=== PATIENT | female | born 1960 | race Hispanic/Latino ===

== ENCOUNTER 2018-05-02 20:54 | Emergency (ER) | payer BC ==
[~2018-05-02] VITALS: Ht 162.6 cm; Wt 78.0 kg
[~2018-05-02 20:54] MED LIST: MELOXICAM7.5 MG PO
--- OUTSIDE RECORDS SUMMARY | 2018-05-02 20:56 | XMS REPORT | Continuity of Care Document ---
Author Author [facility] Interface Address Unknown Phone Unavailable Problems Problem Status Onset Date Classification Date Reported Comments Source Z87.440 Active 08/12/2016 [facility] Medications Medication Details Route Status Patient Instructions Ordering Provider Order Date Source Allergies, Adverse Reactions, Alerts Substance Category Reaction Severity Reaction type Status Date Reported Comments Source Immunizations Immunization Date Given Site Status Last Updated Comments Source Results Order Name Results Value Reference Range Date Interpretation Comments Source CHEM PANEL eGFR 96 mL/min/1.73m2 08/16/2016 Result Comment: The eGFR is calculated using the CKD-EPI formula. In most young, healthy individuals the eGFR will be >90 mL/min/1.73m2. The eGFR declines with age. An eGFR of 60-89 may be normal in some populations, particularly the elderly, for whom the CKD-EPI formula has not been extensively validated. Use of the eGFR is not recommended in the following populations: Individuals with unstable creatinine concentrations, including patients and those with serious co-morbid conditions. Patients with extremes in muscle mass or diet. The data above are obtained from the National Kidney Disease Education Program (NKDEP) which additionally recommends that when the eGFR is used in patients with extremes of body mass index for purposes of drug dosing, the eGFR should be multiplied by the estimated BMI. [facility] CHEM PANEL POC Creatinine 0.7 mg/dL 0.5 - 1.4 08/16/2016 [facility] Intravenous Pyelogram DX Intravenous Pyelogram DX INTRAVENOUS PYELOGRAM WITH TOMOGRAMS: HISTORY: Stress incontinence. FINDINGS: The preliminary radiographs show no evidence of opaque urinary tract calculus. Mild degenerative changes in the lumbar spine are noted. Following intravenous injection of contrast, there is prompt and symmetric opacification into the kidneys which are normal in size position and contour. There is prompt visualization of the pelvocalyceal systems and ureters without filling defect, obstruction or mass displacement. The ureters show normal course and caliber without obstruction. The bladder is unremarkable with mild to moderate post void residual. IMPRESSION: Negative intravenous pyelogram. SHAMAR [id number] 08/16/2016 - - Read by: Rafael Browne MD Dictated Date/time: 08/16/16 13:37 Electronically Signed by: Rafael Browne MD 08/16/16 13:41 FINAL REPORT [facility] Retroperitoneal Complete US Retroperitoneal Complete US BILATERAL RENAL ULTRASOUND: HISTORY: Urinary tract infection. FINDINGS: The right kidney is 11.0 cm in length and 4.6 x 4.4 cm in transverse dimension. The left kidney is 12.2 cm in length and 4.7 x 3.8 cm in transverse dimension. There is normal thickness and echogenicity of the renal parenchyma. There is no evidence of cyst, mass, hydronephrosis, or calculi. Satisfactory qualitative color-flow is demonstrated bilaterally. There is moderate volume urine in the bladder without other significant abnormalities. Bilateral ureteral jets are demonstrated. IMPRESSION: No significant ultrasound abnormalities of the kidneys. [id number] 08/16/2016 - - Read by: Rafael Browne MD Dictated Date/time: 08/16/16 10:19 Electronically Signed by: Rafael Browne MD 08/16/16 10:20 FINAL REPORT [facility] Vital Signs Vital Sign Value Date Comments Source Encounters Location Location Details Encounter Type Encounter Number Reason For Visit Attending Provider ADM Date DC Date Status Source [facility] Outpatient [id number] Shashi Manzano 08/16/2016 08/17/2016 EVON Gil Procedures Procedure Code Date Perfomer Comments Source
--- OUTSIDE RECORDS SUMMARY | 2018-05-02 20:57 | XMS REPORT | Summary of Care ---
Author Author [facility] Organization [facility] Address Unknown Phone Unavailable Encounter ROMAIN Galindo(LILIANA) [id number] Date(s): 08/16/16 - 08/16/16 [facility] [address] [place] [address]- Discharge Disposition: Home or Self Care Attending Physician: Shashi Manzano MD Referring Physician: Shashi Manzano MD Vital Signs No data available for this section Problem List No data available for this section Allergies, Adverse Reactions, Alerts Substance Reaction Severity Status NKDA Active Medications No data available for this section Results CHEM PANEL Most recent to 1 oldest [Reference Range]: eGFR 96 mL/min/1.73m2 1 *NA* (08/16/16 10:08 AM) POC Creatinine 0.7 mg/dL [0.5-1.4 mg/dL] (08/16/16 10:08 AM) 1Result Comment: The eGFR is calculated using the [...] from the National Kidney Disease Education Program ( NKDEP) which additionally recommends that when the eGFR is used in patients with extremes of body mass index for purposes of drug dosing, the eGFR should be mul tiplied by the estimated BMI. Immunizations No data available for this section Procedures No data available for this section Social History No data available for this section Assessment and Plan No data available for this section
--- NOTE | 2018-05-02 22:07 | Diagnostic Imaging Report ---
EXAMINATION: Head CT without contrast. HISTORY:Headache. COMPARISON:None. TECHNIQUE: Multidetector axial images were obtained from the foramen magnum to the vertex without contrast. The images were reconstructed using brain and bone algorithms. Thin section brain images were reformatted into coronal and sagittal planes. Dose modulation, iterative reconstruction, and/or weight based adjustment of the mA/kV was utilized to reduce the radiation dose to as low as reasonably achievable. Intravenous contrast: None IMAGE QUALITY: Acceptable. FINDINGS: Skull/scalp: No lytic or blastic. lesions. No surgical changes. Parenchyma: No abnormal density. No acute hemorrhage, mass or acute major vascular territorial infarct. Arteries: No density suggestive of thrombosis. Mild atherosclerotic calcification in bilateral carotid siphon and V4 segment of the vertebral arteries. Dural sinuses: No abnormal density suggestive of thrombosis. Ventricles: No hydrocephalus or displacement. Extra-axial spaces: No abnormal density. Brain volume: Mild generalized cerebral volume loss. Craniocervical junction: No mass, Chiari malformation, or basilar invagination. Sella: No mass. Paranasal/mastoid sinuses: Imaged portions unremarkable. IMPRESSION: No acute intracranial abnormality. Mild generalized cerebral volume loss. Signed by: Dr. Aviva Jaramillo M.D. on 05/02/2018 10:03 PM
[2018-05-02] MEDS ORDERED: KETOROLAC TROMETHAMINE 30 MG/ML VIAL IM STA (22:12)
[2018-05-02 22:40] VITALS: BP 152/88
== END 2018-05-02 22:50 | disposition home or self-care (01) ==
LOC: FSED 20:54
DX: G44.219 Episodic tension-type headache, not intractable (principal)
CPT/HCPCS: 70450; 99283

== ENCOUNTER 2022-09-22 14:26 | Outpatient (RCR) | payer BC | END 2022-09-26 | LOC: PT 14:26 | PROVIDERS: ATTEND Specialist | DX: M75.101 Unspecified rotator cuff tear or rupture of right shoulder, not specified as traumatic (principal) ==

== ENCOUNTER 2022-09-27 07:04 | Outpatient (RCR) | payer BC | END 2022-10-27 | LOC: PT 07:04 | PROVIDERS: ATTEND Specialist | DX: M75.101 Unspecified rotator cuff tear or rupture of right shoulder, not specified as traumatic (principal) ==

== ENCOUNTER 2025-01-24 15:00 | Outpatient (RCR) | payer MEDICARE | END 2025-01-27 | LOC: PT 15:00 | PROVIDERS: ATTEND Orthopaedic Surgery | DX: M25.561 Pain in right knee (principal); S82.091A Other fracture of right patella, initial encounter for closed fracture ==

== ENCOUNTER 2025-01-27 07:38 | Emergency (ER) | payer MEDICARE ==
[~2025-01-27] VITALS: Ht 170.2 cm; Wt 71.2 kg
[2025-01-27 07:38] VITALS: PULSE 94; RESP 18; TEMP 99.4
[2025-01-27 08:28] LABS: STREPTOCOCCUS GRP A ANTIGEN NEGATIVE (NEGATIVE)
[2025-01-27 08:39] LABS: CORONAVIRUS COVID-19 AG POSITIVE (NEGATIVE)
[2025-01-27] MEDS: KETOROLAC TROMETHAMINE 30 MG/ML VIAL IM STA (08:40)
[2025-01-27 09:48] VITALS: BP 110/70; PULSE 88; RESP 18; O2SAT 99
== END 2025-01-27 09:05 | disposition home or self-care (01) ==
LOC: ER 07:42
DX: R50.9 Fever, unspecified (principal); U07.1 COVID-19; R05.9 Cough, unspecified; F41.9 Anxiety disorder, unspecified
CPT/HCPCS: 83518; 87070; 87428; 99283; J1885

== ENCOUNTER 2025-02-21 15:00 | Outpatient (RCR) | payer MEDICARE | END 2025-02-26 | LOC: PT 15:00 | PROVIDERS: ATTEND Orthopaedic Surgery | DX: M25.561 Pain in right knee (principal); S82.091A Other fracture of right patella, initial encounter for closed fracture ==